=== PATIENT | female | born 1970 | race Caucasian/White ===

== ENCOUNTER 2016-10-26 08:15 | Day surgery (SDC) | payer OTHER ==
--- NOTE | 2016-10-20 11:01 | EKG REPORT ---
SEVERITY:- NORMAL ECG - SINUS RHYTHM : Confirmed by: John Hanson 20-Oct-2016 11:00:56
[2016-10-20 11:25] LABS: ABSOLUTE LYMPHOCYTES (AUTO) 1.3 10^3/uL (0.5-4.7); ABSOLUTE MONOCYTES (AUTO) 0.7 10^3/uL (0.1-1.4); ABSOLUTE NEUT (AUTO) 4.2 10^3/uL (1.7-8.2); BASOPHILS % (AUTO) 0.7 % (0-2); EOSINOPHILS % (AUTO) 0.8 % (0-6); HEMATOCRIT 40.2 % (36.0-47.0); HEMOGLOBIN 13.6 g/dL (12.0-15.5); HGB HCT DIFFERENCE 0.6; LYMPHOCYTES % (AUTO) 21.2 % (13-45); MEAN CORPUSCULAR HEMOGLOBIN 28.4 pg (27.0-33.4); MEAN CORPUSCULAR HGB CONC 33.9 g/dL (32.0-36.0); MEAN CORPUSCULAR VOLUME 84 fl (80-97); MONOCYTES % (AUTO) 10.5 % (3-13); RED CELL DISTRIBUTION WIDTH 12.8 % (11.5-14.0); SEGMENTED NEUTROPHILS % (AUTO) 66.8 % (42-78); WHITE BLOOD COUNT 6.2 10^3/uL (4.0-10.5)
[2016-10-20 11:48] LABS: POTASSIUM 4.1 mmol/L (3.6-5.0); SODIUM 143.8 mmol/L (137-145)
[~2016-10-26 08:15] MED LIST: CEFAZOLIN 2 GM/D5W RTU 2 GM/50 ML RTUPB IV PRN; LACTATED RINGERS 1000 ML IV PRN; LIDOCAINE 0.5% INJ-PF (5 MG/ML) 50 ML SDV SUBCUT PRN; NORMAL SALINE 1000 ML 1,000 ML IV PRN
[2016-10-26] MEDS ORDERED: FAMOTIDINE INJ/PF 20 MG/2 ML SDV IV ONE (09:24)
[2016-10-26] MEDS ORDERED: SCOPOLAMINE HYDROBROMIDE 1.5 MG PATCH.TD72 ONE (09:26)
[2016-10-26] MEDS ORDERED: METHYLENE BLUE 50 MG/10 ML AMPULE ONE (10:29)
[2016-10-26] MEDS ORDERED: BUPIVACAINE HCL 0.25 % INJ/PF (2.5 MG/1 ML) 30 ML VIAL ONE ×2 (10:30→10:47)
[2016-10-26] MEDS ORDERED: FENTANYL CITRATE INJ/PF 250 MCG/5 ML AMPULE ONE (10:30)
[2016-10-26] MEDS ORDERED: HYDROMORPHONE HCL INJ/PF 2 MG/ML AMPULE ONE (10:30)
[2016-10-26] MEDS ORDERED: EPHEDRINE SULFATE INJ 50 MG/1 ML AMPULE ONE (10:31)
[2016-10-26] MEDS ORDERED: MIDAZOLAM 2 MG/2 ML INJ ONE (10:31)
[2016-10-26] MEDS ORDERED: ACETAMINOPHEN 100 ML IV ONE (10:32)
[2016-10-26] MEDS ORDERED: PROPOFOL INJ 200 MG/20 ML VIAL IV ONE (10:32)
[2016-10-26] MEDS ORDERED: PROMETHAZINE HCL INJ 25 MG/1 ML VIAL IV PRN ×3 (11:12→13:23)
[2016-10-26] MEDS ORDERED: MEPERIDINE HCL/PF INJ 25 MG/1 ML DISP.SYRIN IV PRN (11:12)
[2016-10-26] MEDS ORDERED: OXYCODONE-ACETAMINOPHEN 5-325 MG TABLET PO PRN ×3 (11:12→13:21)
[2016-10-26] MEDS ORDERED: MORPHINE SULFATE 10 MG/ML INJ IV PRN ×2 (11:12→13:23)
[2016-10-26] MEDS ORDERED: DIPHENHYDRAMINE HCL 50 MG/ML VIAL IV PRN (11:12)
[2016-10-26] MEDS ORDERED: FENTANYL CITRATE INJ/PF 100 MCG/2 ML AMPUL IV PRN ×3 (11:12)
[2016-10-26] MEDS ORDERED: OXYCODONE HCL IR 5 MG TABLET PO PRN (13:22)
[2016-10-26] MEDS ORDERED: IBUPROFEN INJ 800 MG/8 ML VIAL IV ONE (13:34)
[2016-10-26] MEDS ORDERED: NORMAL SALINE 500 ML IV ONE (13:45)
--- NOTE | 2016-10-26 13:58 | OPERATIVE REPORT E ---
Operative Report NAME: JONNATHAN AYALA : 1970 AGE: 46Y DATE OF SURGERY: 10/26/2016 ROOM: PREOPERATIVE DIAGNOSES: 1. Menometrorrhagia unresponsive to medical therapy. 2. Chronic pelvic pain. 3. History of previous x4. POSTOPERATIVE DIAGNOSES: 1. Menometrorrhagia unresponsive to medical therapy. 2. Chronic pelvic pain. 3. History of previous x4. OPERATION: 1. Robotic total laparoscopic hysterectomy. 2. Bilateral salpingectomy. 3. Cystoscopy. SURGEON: Vivienne Bradley REINSPECTOR: Sarina Contreras M.D. ANESTHESIA: General. ESTIMATED BLOOD LOSS: 150 mL. INTRAVENOUS FLUIDS: 1600 mL. URINE OUTPUT: 200 mL clear urine at the end of the procedure. COMPLICATIONS: None. INDICATIONS: The patient is a 46-year-old, G 4, P 4-0-0-4, with a history of previous section x4, who has had menometrorrhagia that is unresponsive to medical therapy. She desired definitive treatment. She was counseled on the robotic hysterectomy including, but not limited to, bleeding, infection, injury to surrounding organs or tissue, and need of transfusion and possible exploratory laparotomy in case there is bleeding that cannot be identified or visualized during the surgical procedure or too many adhesions due to her previous surgical history. The patient understood and consented to the procedure and agreed to proceed to the operating room. FINDINGS: Normal uterus. Normal tubes bilaterally. Normal ovaries. Anterior abdominal wall adhesions were taken down. DESCRIPTION OF PROCEDURE: The patient was taken to the operating room. General anesthesia was induced without difficulty. She was placed in the dorsal lithotomy position, sterilely prepped and draped in the usual sterile fashion. Kishan Hugger was placed to maintain control of core body temperature. Boyd catheter was placed in her bladder. A heavy weighted speculum was placed in the vaginal mucosa. A single-tooth tenaculum was placed on the anterior lip of the cervix. The cervical os was dilated with Hegar dilators. Hegar dilators were used to dilate the cervix. Two [id number] stitches around 3 and 9 o'clock were placed with anchoring sutures prior to placing the VCare. A VCare manipulator was attached to the uterus with a cervical ring and anchored to the stitches on the right and the left. The weighted speculum and the single-tooth tenaculum were removed from the anterior lip of the cervix. Then, of course, the other 2 sutures were placed on the lateral aspect of the cervix to be used as traction later on in the case as needed along with the VCare and they were anchored within the VCare itself. A horizontal supraumbilical incision was performed a scalpel. Veress needle was placed in the abdominal cavity. Through the Veress needle carbon dioxide was infused until pneumoperitoneum was obtained. This, of course, was done after the water drop test that was done successfully. The Veress needle was then removed. The supraumbilical incision was extended a little bit and a 12-mm trocar and sleeve were placed in the umbilical cavity under direct visualization with the laparoscope without any difficulty. The trocar was removed. A robotic laparoscope was placed in the abdominal cavity. Please see the above findings. Intraperitoneal placement was confirmed. Local anesthesia was used at all ports and the SurgiPorts prior to placing them. Two 8-mm SurgiPorts were placed inferior to the umbilicus and lateral to the rectus abdominus muscle bilaterally. These ports were put in the abdominal cavity under direct visualization away from any major blood vessels. An assistant business manager port was placed in the right upper quadrant. The ureters were identified on both sides and they were both visualized, and both had excellent peristalsis prior to initiating the dissection and were well out of the surgical field at all times. At this point the fimbriated end of the right fallopian tube was grasped on the right side, coagulated and transected along the mesosalpinx all the way down to the cornual region. The round ligament on the right side was cauterized and transected. The utero-ovarian ligament was cauterized and transected with the round ligament all the way down to the level of the uterus and the uterine arteries. Prior to going through the right side, prior to initiating the procedure, again, both ureters were identified. The contralateral sides were performed in a similar fashion where the fimbriated end of the fallopian tubes was grasped and picked up all the way to the mesosalpinx all the way to the cornual region, cauterized and transected. The utero-ovarian ligament was cauterized and transected. The round ligament was cauterized and transected all the way down to the level of the uterus and the uterine arteries. The vesicouterine peritoneum on the right side was then incised in an elliptical fashion, performing the right side of the bladder flap. The bladder was pushed down to the lower uterine segment without any difficulty. The ring was identified anteriorly and anterior colpotomy was performed. Colpotomy was extended, circumscribing the cervix from the vaginal mucosa. The uterus, both fallopian tubes and the cervix were delivered through the vaginal mucosa. There were multiple oozing spots on the right side and left side lateral pelvic sidewall. Those were picked up and cauterized. The vaginal cuff at this point was closed using a running V-Loc suture. Attention was then turned to the ureters bilaterally after the closure of the vaginal cuff, and they were both peristalsing and were normal. Survey of the lateral pelvic sidewalls revealed excellent hemostasis. FloSeal was injected along the vaginal cuff for prophylactic measures and hemostasis. At this point attention was turned to below to perform the cystoscopy portion prior to removing the robotic instruments. The cystoscope was introduced without any difficulty. While we were closing the vaginal cuff I had asked Anesthesia to give methylene blue to do further cystoscopy portion. The cystoscope was introduced and the bladder integrity was visualized. There were no foreign bodies or injury to the bladder wall, and there was a normal bubble sign. There was excellent efflux from both ureteral orifices with strong flow that was identified with the methylene blue. At this point the cystoscope was removed. The robot was undocked. The abdomen was desufflated. All trocars were removed. The 12-mm supraumbilical incision was repaired with a UR6 to repair the fascia. The remaining incisions were closed with 4-0 Monocryl in a horizontal mattress fashion and a running fashion for the supraumbilical and the right upper quadrant incision in a subcuticular fashion. All sponge, needle and instrument counts were noted to be correct x2. The patient did receive preoperative IV antibiotics of Ancef. The Boyd bag was noted to contain clear urine at the end of the procedure. Boyd catheter was removed. Vaginal mucosa was inspected to make sure there were no lacerations. A sponge stick was used to remove any previous blood debris. The patient was extubated successfully in the recovery room. The patient tolerated the procedure well and was sent to the recovery room in excellent condition. DICTATING PHYSICIAN: Vivienne Bradley MD [id number] PHY#: [id number] ID: [id number] JOB#: [id number] ACCT: [id number] cc:Vivienne Veliz
[2016-10-26] MEDS ORDERED: DEXAMETHASONE SOD PHOSPHATE INJ 4 MG/1 ML VIAL ONE (14:25)
[2016-10-26] MEDS ORDERED: ONDANSETRON HCL INJ/PF 4 MG/2 ML SDV ONE (14:25)
[2016-10-26] MEDS ORDERED: SUCCINYLCHOLINE CHLORIDE INJ 200 MG/10 ML VIAL ONE (14:25)
[2016-10-26] MEDS ORDERED: GLYCOPYRROLATE INJ 0.4 MG/2 ML VIAL ONE (14:25)
[2016-10-26] MEDS ORDERED: ROCURONIUM BROMIDE INJ 50 MG/5 ML VIAL IV ONE (14:25)
[2016-10-26] MEDS ORDERED: NEOSTIGMINE METHYLSULFATE 10 MG/10 ML VIAL ONE (14:25)
[2016-10-26] MEDS ORDERED: HYDROMORPHONE HCL 2 MG TABLET PO PRN (16:31)
[2016-10-26] MEDS: ONDANSETRON HCL INJ/PF 4 MG/2 ML SDV IV PRN ×2 (18:08→21:25)
[2016-10-26 23:47] VITALS: BP 118/83
== END 2016-10-27 00:30 | disposition home or self-care (01) ==
LOC: OROUT 08:15 → 2N 14:22 → OROUT 10-27 00:30
PROVIDERS: ATTEND Obstetrics & Gynecology
PROC: 0UTC4ZZ Resection of Cervix, Percutaneous Endoscopic Approach (ICD-10-PCS; 2016-10-26)
PROC: 0UT74ZZ Resection of Bilateral Fallopian Tubes, Percutaneous Endoscopic Approach (ICD-10-PCS; 2016-10-26)
PROC: 8E0W4CZ Robotic Assisted Procedure of Trunk Region, Percutaneous Endoscopic Approach (ICD-10-PCS; 2016-10-26)
PROC: 0UT94ZZ Resection of Uterus, Percutaneous Endoscopic Approach (ICD-10-PCS; principal; 2016-10-26 10:30)
DX: N92.1 Excessive and frequent menstruation with irregular cycle (principal); G89.29 Other chronic pain; R10.2 Pelvic and perineal pain; N80.0 Endometriosis of uterus; D25.9 Leiomyoma of uterus, unspecified; N94.6 Dysmenorrhea, unspecified; Z88.5 Allergy status to narcotic agent; G43.909 Migraine, unspecified, not intractable, without status migrainosus
CPT/HCPCS: 58571; S2900; 36415; 80051; 81025; 840; 85025; 86850; 86900; 86901; 88307; 93005; 93010; J0131; J0330; J0690; J1100; J1170; J1741; J2250; J2405; J2704; J3010; J3490; Q9968; S0028